=== PATIENT | male | born 2000 | race African-American/Black ===

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

== ENCOUNTER 2020-09-15 21:55 | Emergency (ER) | payer OTHER ==
[~2020-09-15] VITALS: Ht 195.6 cm; Wt 88.5 kg
[~2020-09-15 21:55] MED LIST changes: +OSELB75 PO
[2020-09-15] MEDS ORDERED: PROZAC20 MG PO (22:02)
[2020-09-15] MEDS ORDERED: HYDROXYZINE HCL10 M2 PO (22:03)
[2020-09-15 23:15] LABS: ABSOLUTE NEUTROPHILS 3.2 thou/uL (1.4-8.2); BASOPHILS 0.8 % (0.0-2.0); EOSINOPHILS 3.6 % (0.0-3.0); HEMATOCRIT 41.4 % (42.0-52.0); HEMOGLOBIN 13.4 gm/dL (14.0-18.0); LYMPHOCYTES 25.5 % (24.0-44.0); MCH 30.2 pg (26.0-34.0); MCHC 32.3 g/dL (28.0-37.0); MCV 93.5 fL (80.0-100.0); MONOCYTES 12.5 % (1.0-8.0); PLATELET COUNT 234 thou/uL (150-400); POLYS 57.6 % (36.0-66.0); RBC 4.43 mil/uL (4.50-6.00); RDW 12.9 % (10.5-14.5); WBC 5.6 thou/uL (4.0-11.0)
[2020-09-15 23:43] LABS: CALCIUM 8.9 mg/dL (8.5-10.1); CREATININE 1.2 mg/dL (0.7-1.3); POTASSIUM 3.9 mmol/L (3.5-5.1)
[2020-09-16 00:23] VITALS: BP 147/86
--- NOTE | 2020-09-16 09:33 | EKG ---
[address] [place] [address] ELECTROCARDIOGRAM REPORT Name: ERIKA LOCKE SHWETHA Room #: DEP [facility] [id number] Admission: 09/15/20 Attend Phys: Discharge: 09/16/20 Date of : 89 Report #: [id number] [facility] ED Test Date: 2020-09-15 Test Time: 22:35:49 Pat Name: ERIKA LOCKE Department: Room: Gender: M [employer] Preparer: [facility] : 2000 Requested By: Esteban Yip Order Number: [id number] MD: Denys Osorio Measurements Intervals [place] Rate: 72 P: 151 [place]: 152 QRS: -18 QRSD: 117 T: 51 QT: 324 QTc: 355 Interpretive Statements Sinus or ectopic atrial rhythm Nonspecific intraventricular conduction delay ST elev, probable normal early repol pattern No previous ECG available for comparison Electronically Signed On 09-16-2020 9:33:04 [employer] by Denys Osorio [email or web address] <ELECTRONICALLY SIGNED> By: Denys Osorio MD 09/16/20 0933 [id number] Denys Osorio MD /ALEXANDRE
== END 2020-09-16 00:24 | disposition home or self-care (01) ==
LOC: ER 21:55
PROVIDERS: Emergency Medicine
DX: R53.83 Other fatigue (principal); Z20.828 Contact with and (suspected) exposure to other viral communicable diseases; R42 Dizziness and giddiness; R06.02 Shortness of breath; F41.9 Anxiety disorder, unspecified; Z79.899 Other long term (current) drug therapy; Z88.0 Allergy status to penicillin